=== PATIENT | male | born 1965 | race Caucasian/White ===

== ENCOUNTER 2018-10-16 19:23 | Emergency (ER) | payer BC ==
[2018-10-16] MEDS ORDERED: HYDROmorphone 1 MG/ML Syringe IVPUSH ONE (20:33)
--- NOTE | 2018-10-16 20:39 | EDM.PDOC ---
ED HPI GENERAL MEDICAL PROBLEM - General Chief Complaint: Gastrointestinal Problem Stated Complaint: LEFT LOWER ABD PAIN Time Seen by Provider: 10/16/18 20:25 Source of Information: Reports: Patient, Old Records History Limitations: Reports: No Limitations - History of Present Illness INITIAL COMMENTS - FREE TEXT/NARRATIVE: 53 yo male presents with LLQ/testicular pain that has been progressive over the past several hrs. The L testicle is very tender, but not swollen. He says he has a remote hx of epididymitis. Has been doing work around the house today with lots of trips up and down a ladder. No nausea or fever. No urinary sx's. Onset: Today Onset Date: 10/16/18 Onset Time: 15:00 Duration: Hour(s):, Getting Worse Location: Reports: Abdomen (LLQ), Pelvis (L testicle) Quality: Reports: Pressure Severity: Severe Improves with: Reports: Rest Worsens with: Reports: Movement Context: Reports: Other (See HPI) Associated Symptoms: Reports: No Other Symptoms Treatments ADDRESSER: Reports: Other (see below) (None) Left Testicular Pain Score (Numeric/FACES): 9 - Related Data Allergies Allergy/AdvReac Type Severity Reaction Status Date / Time tetracycline Allergy Cannot Verified 10/16/18 20:11 Remember Home Meds: Home Meds Acyclovir [Zovirax] 200 mg PO BID PRN 10/16/18 [History] Ciprofloxacin [Ciprofloxacin HCl] 500 mg PO Q12H #20 tab 10/16/18 [Rx] Past Medical History Dermatologic History: Reports: Other (See Below) Other Dermatologic History: Genitia herpes - Infectious Disease History Infectious Disease History: Reports: Chicken Pox - Past Surgical History GI Surgical History: Reports: Colonoscopy Male Surgical History: Reports: Vasectomy Social & Family History - Caffeine Use Caffeine Use: Reports: Coffee - Recreational Drug Use Recreational Drug Use: Yes ED ROS GENERAL - Review of Systems Review Of Systems: See Below Constitutional: Reports: No Symptoms HEENT: Reports: No Symptoms Respiratory: Reports: No Symptoms Cardiovascular: Reports: No Symptoms GI/Abdominal: Reports: Abdominal Pain (LLQ). Denies: Black Stool, Bloody Stool , Constipation, Diarrhea, Flatus, Hematemesis, Hematochezia, Melena, Nausea, Vomiting : Reports: Other (L testicle pain) Musculoskeletal: Reports: No Symptoms Skin: Reports: No Symptoms Neurological: Reports: No Symptoms ED EXAM, GI/ABD - Physical Exam Exam: See Below Exam Limited By: No Limitations General Appearance: Alert, WD/WN, Mild Distress Eyes: Bilateral: Normal Appearance Ears: Normal External Exam, Normal Canal, Hearing Grossly Normal, Normal TMs Nose: Normal Inspection, No Blood Throat/Mouth: Normal Inspection, Normal Lips, Normal Oropharynx, Normal Voice, No Airway Compromise Head: Atraumatic, Normocephalic Neck: Normal Inspection Respiratory/Chest: No Respiratory Distress, Lungs Clear, Normal Breath Sounds, No Accessory Muscle Use Cardiovascular: Regular Rate, Rhythm, No Edema GI/Abdominal Exam: Soft, No Distention, Rebound, Tender (LLQ and inguinal region including testicles L>R), Abnormal Bowel Sounds (decreased). No: Normal Bowel Sounds, Non-Tender, Distended, Guarding, Rigid (Male) Exam: Normal Inspection, Testicular Tenderness (L), Testicular Tenderness (R) (less tender), Other (L inguinal hernia noted). No: No Hernia Back Exam: Normal Inspection. No: CVA Tenderness (R), CVA Tenderness (L) Extremities: Normal Inspection, Normal Range of Motion, Non-Tender, No Pedal Edema Neurological: Alert, Oriented, CN II-XII Intact, Normal Cognition, No Motor/ Sensory Deficits Psychiatric: Normal Affect, Normal Mood Skin Exam: Warm, Dry, Intact, Normal Color, No Rash Course - Vital Signs Text/Narrative:: Re-examination after Dilaudid allowed me at least to touch his testicle. This time with a bit better exam is feels like the L testicle is larger than the right. Last Recorded V/S: Last Vital Signs Temp 36.0 C 10/16/18 20:07 Pulse 78 10/16/18 21:07 Resp 14 10/16/18 20:07 BP 116/72 10/16/18 21:07 Pulse Ox 99 10/16/18 21:07 - Orders/Labs/Meds Orders: Active Orders 24 hr Category Date Time Status Sodium Chloride 0.9% [Normal Saline] 1,000 ml Med 10/16/18 20:45 Active IV ASDIRECTED Sodium Chloride 0.9% [Normal Saline] 83 ml Med 10/16/18 21:30 Active IV ASDIRECTED Medication Orders Sodium Chloride (Normal Saline) 1,000 mls @ 150 mls/hr IV ASDIRECTED MORAIMA Last Admin: 10/16/18 21:24 Dose: 150 mls/hr Sodium Chloride (Normal Saline) 83 mls @ 3 mls/sec IV ASDIRECTED MORAIMA Last Admin: 10/16/18 22:08 Dose: 3 mls/sec Labs: Laboratory Tests 10/16/18 10/16/18 10/16/18 Range/Units 20:44 20:44 21:31 WBC 11.3 H (4.5-11.0) K/uL RBC 4.55 (4.30-5.90) M/uL Hgb 13.9 (12.0-15.0) g/dL Hct 41.8 (40.0-54.0) % MCV 92 (80-98) fL MCH 31 (27-31) pg MCHC 33 (32-36) % Plt Count 263 (150-400) K/uL Sodium 137 L (140-148) mmol/L Potassium 3.7 (3.6-5.2) mmol/L Chloride 100 (100-108) mmol/L Carbon Dioxide 26 (21-32) mmol/L Anion Gap 14.7 H (5.0-14.0) mmol/L BUN 15 (7-18) mg/dL Creatinine 1.0 (0.8-1.3) mg/dL Est Cr Clr Drug Dosing 88.57 mL/min Estimated GFR (MDRD) > 60 (>60) Glucose 121 H (74-106) mg/dL Calcium 8.7 (8.5-10.1) mg/dL C-Reactive Protein (0.0-0.3) mg/dL Urine Color Yellow Urine Appearance Clear Urine pH 5.0 (4.5-8.0) Ur Specific [place] 1.025 (1.008-1.030) Urine Protein Negative (NEGATIVE) mg/dL Urine Glucose (UA) Normal (NEGATIVE) mg/dL Urine Ketones Negative (NEGATIVE) mg/dL Urine Occult Blood Negative (NEGATIVE) Urine Nitrite Negative (NEGAITVE) Urine Bilirubin Negative (NEGATIVE) Urine Urobilinogen Normal (NORMAL) mg/dL Ur Leukocyte Esterase Negative (NEGATIVE) Urine RBC 0-5 (0-5) Urine WBC Not seen (0-5) Ur Epithelial Cells Rare Amorphous Sediment Not seen Urine Bacteria Not seen Urine Mucus Moderate 10/16/18 Range/Units 22:54 WBC (4.5-11.0) K/uL RBC (4.30-5.90) M/uL Hgb (12.0-15.0) g/dL Hct (40.0-54.0) % MCV (80-98) fL MCH (27-31) pg MCHC (32-36) % Plt Count (150-400) K/uL Sodium (140-148) mmol/L Potassium (3.6-5.2) mmol/L Chloride (100-108) mmol/L Carbon Dioxide (21-32) mmol/L Anion Gap (5.0-14.0) mmol/L BUN (7-18) mg/dL Creatinine (0.8-1.3) mg/dL Est Cr Clr Drug Dosing mL/min Estimated GFR (MDRD) (>60) Glucose (74-106) mg/dL Calcium (8.5-10.1) mg/dL C-Reactive Protein < 0.30 (0.0-0.3) mg/dL Urine Color Urine Appearance Urine pH (4.5-8.0) Ur Specific [place] (1.008-1.030) Urine Protein (NEGATIVE) mg/dL Urine Glucose (UA) (NEGATIVE) mg/dL Urine Ketones (NEGATIVE) mg/dL Urine Occult Blood (NEGATIVE) Urine Nitrite (NEGAITVE) Urine Bilirubin (NEGATIVE) Urine Urobilinogen (NORMAL) mg/dL Ur Leukocyte Esterase (NEGATIVE) Urine RBC (0-5) Urine WBC (0-5) Ur Epithelial Cells Amorphous Sediment Urine Bacteria Urine Mucus Meds: Medications Generic Name Dose Route Start Last Admin Trade Name Freq PRN Reason Stop Dose Admin Sodium Chloride 1,000 mls @ 150 mls/hr 10/16/18 20:45 10/16/18 21:24 Normal Saline IV 150 mls/hr ASDIRECTED MORAIMA Administration Sodium Chloride 83 mls @ 3 mls/sec 10/16/18 21:30 10/16/18 22:08 Normal Saline IV 3 mls/sec ASDIRECTED MORAIMA Administration Discontinued Medications Generic Name Dose Route Start Last Admin Trade Name Freq PRN Reason Stop Dose Admin Ciprofloxacin 500 mg 10/16/18 23:01 10/16/18 23:35 Ciprofloxacin Hcl PO 10/16/18 23:02 500 mg ONETIME ONE Administration Hydromorphone HCl 1 mg 10/16/18 20:33 10/16/18 21:19 Dilaudid IVPUSH 10/16/18 20:34 1 mg ONETIME ONE Administration Hydromorphone HCl 0.5 mg 10/16/18 22:30 10/16/18 22:38 Dilaudid IVPUSH 10/16/18 22:31 0.5 mg ONETIME ONE Administration Iopamidol 128 ml 10/16/18 21:30 10/16/18 22:10 Isovue-300 (61%) IV 150 ml . DIRECTED MORAIMA Administration Ketorolac Tromethamine 30 mg 10/16/18 22:55 10/16/18 23:31 Toradol IVPUSH 10/16/18 22:56 30 mg ONETIME ONE Administration Sodium Chloride 10 ml 10/16/18 21:24 10/16/18 22:08 Saline Flush FLUSH 10/16/18 21:25 10 ml ONETIME ONE Administration - Radiology Interpretation Free Text/Narrative:: CT abd/pelvis with IV contrast- CT Results Date: 10/16/18 Departure - Departure Time of Disposition: 23:42 Disposition: Home, Self-Care 01 Condition: Fair Clinical Impression: Orchitis - Discharge Information *PRESCRIPTION DRUG MONITORING PROGRAM REVIEWED*: No *COPY OF PRESCRIPTION DRUG MONITORING REPORT IN PATIENT RONNIE: No Prescriptions: Ciprofloxacin [Ciprofloxacin HCl] 500 mg PO Q12H #20 tab Instructions: Orchitis Referrals: PCP,None [Primary Care Provider] - Forms: ED Department Discharge, ED Return to Work/School Form Additional Instructions: Take ciprofloxacin 500 mg every 12 hrs until gone. Take ibuprofen 600 mg every 6 hrs for pain relief. Add Percocet OR acetaminophen as needed for more pain relief. Recheck in the clinic early in the week. - My Orders Last 24 Hours: My Active Orders 10/16/18 20:45 Sodium Chloride 0.9% [Normal Saline] 1,000 ml IV ASDIRECTED 10/16/18 21:30 Sodium Chloride 0.9% [Normal Saline] 83 ml IV ASDIRECTED - Assessment/Plan Last 24 Hours: My Active Orders 10/16/18 20:45 Sodium Chloride 0.9% [Normal Saline] 1,000 ml IV ASDIRECTED 10/16/18 21:30 Sodium Chloride 0.9% [Normal Saline] 83 ml IV ASDIRECTED
[2018-10-16] MEDS ORDERED: Sodium Chloride 0.9% 1,000 ML IV SCH (20:45)
[2018-10-16] MEDS ORDERED: Sodium Chloride 0.9% 10 ML Syringe FLUSH ONE (21:24)
[2018-10-16] MEDS ORDERED: Iopamidol 612 MG/ML 150 ML Bottle IV SCH (21:30)
[2018-10-16] MEDS ORDERED: HYDROmorphone 0.5 MG/0.5 ML Syringe IVPUSH ONE (22:30)
--- NOTE | 2018-10-16 22:49 | CRLCT ---
INDICATION: Left lower quadrant pain. Questioning a left inguinal hernia. TECHNIQUE: CT of abdomen and pelvis performed after IV injection of 100 mL of Isovue-300. FINDINGS: No left inguinal hernia. Endplate irregularities in the thoracic and lumbar spine likely related to Schmorl`s nodes. Mild prominent on the left renal pelvis and proximal ureter likely a normal variant. Mild wall thickening distal esophagus indeterminate but may be inflammatory. Minimal increased density in the abdominal mesentery could related to slight insignificant inflammation or edema. Few very small/tiny cysts in both kidneys. Mild nonspecific wall thickening involving the urinary bladder without surrounding inflammatory stranding. No evidence for diverticulitis. Appendix is normal. Remainder negative. IMPRESSION: 1. No left inguinal hernia. 2. Mild wall thickening circumferential and distal esophagus may be inflammatory. 3. Mild nonspecific wall thickening of the urinary bladder without surrounding inflammatory stranding to suggest active cystitis. Other findings as above. Please note that all CT scans at this facility use dose modulation, iterative reconstruction, and/or weight-based dosing when appropriate to reduce radiation dose to as low as reasonably achievable. Dictated by Gee Barron MD @ Oct 16 2018 10:43PM Signed by Dr. Gee Barron @ Oct 16 2018 10:47PM
[2018-10-16] MEDS ORDERED: Ketorolac 30 MG/ML SDV IVPUSH ONE (22:55)
[2018-10-16] MEDS ORDERED: Ciprofloxacin 500 MG Tab PO ONE (23:01)
== END 2018-10-17 00:30 | disposition home or self-care (01) ==
LOC: JP.ED 19:23
DX: N45.2 Orchitis (principal); Z88.1 Allergy status to other antibiotic agents; Z79.899 Other long term (current) drug therapy
CPT/HCPCS: 36415; 74177; 80048; 81001; 85027; 86140; 96361; 96374; 96375; 96376; 99284; A9270; J1170; J1885; J7030

== ENCOUNTER 2020-09-14 14:29 | Emergency (ER) | payer BC, OTHER ==
--- NOTE | 2020-09-14 15:43 | EDM.PDOC ---
ED HPI GENERAL MEDICAL PROBLEM - General Chief Complaint: Back Pain or Injury Stated Complaint: LOWER BACK PAIN Time Seen by Provider: 09/14/20 15:20 Source of Information: Reports: Patient. 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 He says he gets some relief with stretching. He denies a hx of injury. No bowel or bladder dysfunction. Has not been seen by a medical provider for this. Onset: Gradual Duration: Week(s): (approx 4 weeks), Getting Worse Location: Reports: Back (low), Pelvis (buttocks) Quality: Reports: Ache Severity: Moderate Improves with: Reports: Other (stretching) Worsens with: Reports: Other (sitting in his truck) Context: Reports: Other (See HPI) Associated Symptoms: Reports: No Other Symptoms Treatments RECRUITMENT CONSULTANT: Reports: Other (see below) (none) - Related Data Allergies Allergy/AdvReac Type Severity Reaction Status Date / Time tetracycline Allergy Cannot Verified 09/14/20 14:45 Remember Home Meds: Home Meds NK [No Known Home Meds] 09/14/20 [History] Past Medical History - Past Health History Medical/Surgical History: Denies Medical/Surgical History Dermatologic History: Reports: Other (See Below) Other Dermatologic History: Genitia herpes - Infectious Disease History Infectious Disease History: Reports: Chicken Pox - Past Surgical History GI Surgical History: Reports: Colonoscopy Male Surgical History: Reports: Vasectomy Social & Family History - Tobacco Use Years of Tobacco use: 45 - Caffeine Use Caffeine Use: Reports: Coffee ED ROS GENERAL - Review of Systems Review Of Systems: See Below Constitutional: Reports: No Symptoms Respiratory: Reports: No Symptoms Cardiovascular: Reports: No Symptoms GI/Abdominal: Reports: No Symptoms : Reports: No Symptoms. Denies: Flank Pain, Incontinence, Urgency, Urinary Retention Musculoskeletal: Reports: Back Pain (low and both buttocks R > L) Skin: Reports: No Symptoms Neurological: Reports: Other (pain going down R leg to knee) ED EXAM,LOWER BACK PAIN/INJURY - Physical Exam Exam: See Below Exam Limited By: No Limitations General Appearance: Alert, WD/WN, No Apparent Distress Eye Exam: Bilateral Eye: Normal Inspection Ears: Normal External Exam, Normal Canal, Hearing Grossly Normal Nose: Normal Inspection, No Blood Throat/Mouth: Normal Lips, Normal Voice, No Airway Compromise Head: Atraumatic, Normocephalic Neck: Normal Inspection Respiratory/Chest: No Respiratory Distress Back Exam: Normal Inspection, Muscle Spasm (slight on the R of lumbar spine), Paraspinal Tenderness (R lumbar paraspinous). No: CVA Tenderness (R), CVA Tenderness (L), Decreased Range of Motion, Vertebral Tenderness Extremities: Normal Inspection, Normal Range of Motion, Non-Tender, No Pedal Edema. No: Limited Range of Motion (full bilat hip ROM, no marked sciatic notch or SI joint pain. No trochanteric bursa pain. ) Neurological: Alert, Normal Mood/Affect, CN II-XII Intact, Normal Gait, No Motor/Sensory Deficits, Oriented x 3. No: Difficulty Walking DTR - Lower Extremities: 2+: Knee (R), Knee (L), Ankle (R), Ankle (L) Psychiatric: Normal Affect, Normal Mood Skin Exam: Warm, Dry, Intact, Normal Color, No Rash Course - Vital Signs Last Recorded V/S: Last Vital Signs Temp 36.7 C 09/14/20 14:52 Pulse 82 09/14/20 14:52 Resp 16 09/14/20 14:52 BP 112/69 09/14/20 14:52 Pulse Ox 100 09/14/20 14:52 - Orders/Labs/Meds Orders: Active Orders 24 hr Category Date Time Status Lumbar Spine 2 or 3V [CR] Stat Exams 09/14/20 15:37 Ordered - Radiology Interpretation Free Text/Narrative:: Lumbar spine X-ray- - Re-Assessments/Exams Free Text/Narrative Re-Assessment/Exam: 09/14/20 15:52 X-ray tech went into his room to take him to X-ray and he had eloped. Departure - Departure Time of Disposition: 15:45 Disposition: Eloped 07 Condition: Fair Clinical Impression: Sciatica Qualifiers: Laterality: right Qualified Code(s): M54.31 - Sciatica, right side - Discharge Information *PRESCRIPTION DRUG MONITORING PROGRAM REVIEWED*: Not Applicable *COPY OF PRESCRIPTION DRUG MONITORING REPORT IN PATIENT RONNIE: Not Applicable Referrals: PCP,None [Primary Care Provider] - Forms: ED Department Discharge Sepsis Event Note (ED) - Evaluation Sepsis Screening Result: No Definite Risk - Focused Exam Vital Signs: Vital Signs Temp Pulse Resp BP Pulse Ox 09/14/20 14:52 36.7 C 82 16 112/69 100 09/14/20 14:40 36.7 C 82 16 112/69 100 - My Orders Last 24 Hours: My Active Orders 09/14/20 15:37 Lumbar Spine 2 or 3V [CR] Stat - Assessment/Plan Last 24 Hours: My Active Orders 09/14/20 15:37 Lumbar Spine 2 or 3V [CR] Stat
== END 2020-09-14 15:50 | disposition left against medical advice (07) ==
LOC: JP.ED 14:29
DX: M54.41 Lumbago with sciatica, right side (principal); Z88.1 Allergy status to other antibiotic agents
CPT/HCPCS: 99282; 99283